=== PATIENT | female | born 2000 | race Two or more races ===

== ENCOUNTER 2020-06-21 11:51 | Emergency (ER) | payer MEDICAID ==
[~2020-06-21] VITALS: Ht 152.4 cm; Wt 63.5 kg
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
[2020-06-21 12:09] VITALS: BP 123/78
[2020-06-21 12:19] LABS: APPEARANCE,URINE CLEAR; BILIRUBIN, URINE NEGATIVE (NEGATIVE); GLUCOSE, URINE (UA) NEGATIVE (NEGATIVE); KETONES,URINE NEGATIVE (NEGATIVE); LEUKOCYTE ESTERASE ,URINE 1+ (NEGATIVE); NITRITE,URINE NEGATIVE (NEGATIVE); PH,URINE 8 (4.5-8.0); PROTEIN,URINE NEGATIVE (NEGATIVE); UROBILINOGEN,URINE NORMAL MG/DL (0.0-1.0)
[2020-06-21 12:20] LABS: COLOR,URINE YELLOW
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
[2020-06-21] MEDS ORDERED: Lidocaine 1% MPF 10mg/ml 5ml INJ ONE (12:30)
[2020-06-21] MEDS ORDERED: Bicillin LA 1.2MMU/2ML SYR IM ONE ×2 (12:30)
[2020-06-21] MEDS ORDERED: Azithromycin 250mg tab ORAL ONE (12:30)
--- NOTE | 2020-06-21 12:50 | NUR ---
ED Nurse Note: pt would like to sign out AMA at this time. states that she needs to pick someone up. risks of leaving were explained to pt, she is still choosing to leave. pt refusing resources or meds at this time. signed necessary paperwork and left in no acute distress, taking all belongings.
== END 2020-06-21 12:50 | disposition left against medical advice (07) ==
LOC: EMR 12:45
DX: T76.21XA Adult sexual abuse, suspected, initial encounter (principal); Z53.29 Procedure and treatment not carried out because of patient's decision for other reasons
CPT/HCPCS: 80307; 81003; 81025; Z7502; 99282